=== PATIENT | male | born 1960 | race Two or more races ===

== ENCOUNTER 2018-01-06 07:52 | Emergency (ER) | payer MEDICARE, MEDICAID ==
[~2018-01-06] VITALS: Ht 172.7 cm; Wt 85.0 kg
[2018-01-06] MEDS ORDERED: ALBUTEROL/IPRATROPIUM 2.5MG/0.5MG, 3 ML NPPB ONE (08:30)
[2018-01-06] MEDS ORDERED: ALBUTEROL/IPRATROPIUM 2.5MG/0.5MG, 3 ML ONE (08:44)
[2018-01-06 09:47] VITALS: BP 134/76
== END 2018-01-06 09:49 | disposition home or self-care (01) ==
LOC: ED 08:43
DX: J45.31 Mild persistent asthma with (acute) exacerbation (principal); J00 Acute nasopharyngitis [common cold]
CPT/HCPCS: 71046; 93005; 94640; 99284; J7512; J7620